=== PATIENT | male | born 1975 | race Caucasian/White ===

== ENCOUNTER 2016-10-08 23:57 | Emergency (ER) | payer MEDICAID ==
[2016-03-12 09:35] VITALS: BMI 20.6
[~2016-10-08 23:57] MED LIST: CYCLOBENZAPRINE10 MG PO; HYDROCODONE-APA1 TAB PO
== END 2016-10-09 03:15 | disposition home or self-care (01) ==
LOC: D.ER 23:57
DX: T14.8 Other injury of unspecified body region (principal); S01.312A Laceration without foreign body of left ear, initial encounter; Y04.2XXA Assault by strike against or bumped into by another person, initial encounter; Y93.89 Activity, other specified; Y92.89 Other specified places as the place of occurrence of the external cause; S61.412A Laceration without foreign body of left hand, initial encounter